=== PATIENT | male | born 1975 | race Caucasian/White ===

== ENCOUNTER 2016-10-31 10:37 | Emergency (ER) | payer OTHER ==
[2016-10-31] MEDS ORDERED: Sodium Chloride 0.9% 1,000 ML IV ONE (11:33)
--- NOTE | 2016-10-31 11:37 | C.PDOC ---
History Of Present Illness 41 y/o male presents to the ED with complaints of blood tinged sputum this morning. Patient states he occasionally spits up blood in the morning over the past year, which he thought was secondary to brushing his teeth. He admits to occasional gum bleeding when brushing. He also reports dry cough and nasal congestion over the past 4 days with upper back pain. Patient additionally reports epigastric burning sensation intermittently for several days, worse with eating. Denies chest pain, fever, chills, night sweats, weight loss, weakness, hematuria, hemtochezia or any other complaints. Denies recent travel. PSHx appendectomy. Time Seen by Provider: 10/31/16 11:23 Chief Complaint (Nursing): Medical Clearance History Per: Patient History/Exam Limitations: no limitations Onset/Duration Of Symptoms: Days Current Symptoms Are (Timing): Still Present Severity: Mild Recent travel outside of the [place]: No Past Medical History Reviewed: Historical Data, Nursing Documentation, Vital Signs Vital Signs: Last Vital Signs Temp 98.1 F 10/31/16 12:35 Pulse 60 10/31/16 12:35 Resp 18 10/31/16 12:35 BP 118/75 10/31/16 12:35 Pulse Ox 98 10/31/16 12:36 - Medical History PMH: No Chronic Diseases Surgical History: Appendectomy Family History: States: Unknown Family Hx - Social History Hx Alcohol Use: No Hx Substance Use: No - Immunization History Hx Tetanus Toxoid Vaccination: No Hx Influenza Vaccination: No Hx Pneumococcal Vaccination: No Review Of Systems Constitutional: Negative for: Fever, Chills, Sweats, Weakness, Weight loss ENT: Positive for: Nose Congestion Cardiovascular: Negative for: Chest Pain Respiratory: Positive for: Cough, Sputum (blood tinged). Negative for: Shortness of Breath, Pleuritic Pain Gastrointestinal: Positive for: Abdominal Pain (burning). Negative for: Vomiting, Diarrhea, Hematochezia Genitourinary: Negative for: Hematuria Musculoskeletal: Positive for: Back Pain Skin: Negative for: Rash Neurological: Negative for: Weakness, Numbness, Headache, Dizziness Physical Exam - Physical Exam Appears: Non-toxic, No Acute Distress Skin: Warm, Dry, No Diaphoretic, No Pale, No Rash Head: Atraumatic, Normacephalic Eye(s): bilateral: Normal Inspection, EOMI Ear(s): Bilateral: Normal Nose: Normal Oral Mucosa: Moist Teeth: Normal Dentition Gingiva: Normal Appearing, No Bleeding Throat: Normal, No Erythema Neck: Normal, Normal ROM, Supple Chest: Symmetrical Cardiovascular: Rhythm Regular, No Murmur Respiratory: Normal Breath Sounds, No Rales, No Rhonchi, No Wheezing Gastrointestinal/Abdominal: Normal Exam, Soft, No Tenderness Back: Normal Inspection, No Vertebral Tenderness, No Paraspinal Tenderness Extremity: Bilateral: Atraumatic, Normal Color And Temperature, Normal ROM Neurological/Psych: Oriented x3, Normal Speech Gait: Steady ED Course And Treatment - Laboratory Results Result Diagrams: 10/31/16 11:46 10/31/16 11:46 Lab Interpretation: No Acute Changes O2 Sat by Pulse Oximetry: 98 (room air) Pulse Ox Interpretation: Normal Medical Decision Making Medical Decision Making: Impression: 41 y.o male with blood tinge sputum Plan: * EKG * XR abdomen/chest * labs, UA * IV fluids * protonix Progress: XRay shows no active cardiopulmonary disease. No evidence of bowel obstruction. Labs reviewed and unremarkable; normal H/H, coags and no electrolyte abnormality Patient remained well in no acute distress. No signs of hemodynamic instability. Discussed results with patient and provide copy of all labwork. Instruct patient the importance of follow up in the clinic in the next few days for further evaluation. Patient verbalized understanding and will follow up . Disposition Counseled Patient/Family Regarding: Diagnosis, Need For Followup - Disposition Referrals: [facility] [Outside] Disposition: HOME/ ROUTINE Disposition Time: 12:33 Condition: STABLE Additional Instructions: Serena laboratorios y la radiografa rubio normales. Por favor, siga en la clnica para bebeto evaluacin ms detallada. 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 - Scribe Statement The provider has reviewed the documentation as recorded by the Scribe Mor Suarez All medical record entries made by the Scribe were at my direction and personally dictated by me. I have reviewed the chart and agree that the record accurately reflects my personal performance of the history, physical exam, medical decision making, and the department course for this patient. I have also personally directed, reviewed, and agree with the discharge instructions and disposition.
[2016-10-31 11:54] LABS: BASO # 0.1 K/uL (0.0-0.2); BASO % 0.8 % (0.0-2.0); EOS # 0.4 K/uL (0.0-0.7); EOS % 6.2 % (0.0-4.0); HEMATOCRIT 37.9 % (35.0-51.0); LYMPH # 2.1 K/uL (1.0-4.3); LYMPH % 30.5 % (20.0-40.0); MEAN CELL VOLUME 83.5 fL (80.0-94.0); MEAN CORPUSCULAR HEMOGLOBIN 28.1 pg (27.0-31.0); MEAN CORPUSCULAR HGB CONC 33.6 g/dL (33.0-37.0); MEAN PLATELET VOLUME 7.9 fL (7.2-11.7); MONO # 0.7 K/uL (0.0-0.8); MONO % 10.5 % (0.0-10.0); WHITE BLOOD COUNT 6.9 K/uL (4.8-10.8)
[2016-10-31 11:58] LABS: CHLORIDE 105 mmol/L (98-107); POTASSIUM 3.8 mmol/L (3.6-5.2); SODIUM 140 mmol/L (132-148)
[2016-10-31 12:00] LABS: AST/SGOT 28 U/L (17-59); BILIRUBIN,TOTAL 0.9 mg/dL (0.2-1.3); CARBON DIOXIDE 24 mmol/L (22-30); GFR AFRICAN-AMERICAN > 60
[2016-10-31 12:01] LABS: ALB/GLOB RATIO 1.2 (1.0-2.1); ALKALINE PHOSPHATASE 68 U/L (38-126); ALT/SGPT 28 U/L (21-72); BLOOD UREA NITROGEN 14 mg/dL (9-20); CALCIUM 8.6 mg/dl (8.6-10.4); GLUCOSE,RANDOM 105 mg/dL (75-110); TOTAL PROTEIN 7.2 g/dL (6.3-8.3)
[2016-10-31 12:05] LABS: RBC URINE < 1 /hpf (0-3); URINE BILIRUBIN NEGATIVE (NEGATIVE); URINE BLOOD NEGATIVE (NEGATIVE); URINE COLOR Yellow (YELLOW); URINE GLUCOSE (UA) NORMAL (Normal); URINE KETONE NEGATIVE (NEGATIVE); URINE LEUKOCYTE ESTERASE NEG Leu/uL (Negative); URINE PROTEIN NEGATIVE (NEGATIVE); URINE UROBILINOGEN NORMAL mg/dL (0.2-1.0); WBC URINE 1 /hpf (0-5)
[2016-10-31] MEDS ORDERED: Sodium Chloride 0.9% 1,000 ML ONE (12:10)
[2016-10-31 12:35] VITALS: BP 118/75; PULSE 60; RESP 18; TEMP 98.1
[2016-10-31 12:36] VITALS: O2SAT 98
--- NOTE | 2016-10-31 15:56 | RAD ---
HISTORY: cough and abd pain COMPARISON: No prior. FINDINGS: BOWEL: Frontal view of the chest and upright view of the abdomen were performed. Chest radiograph reveals no evidence of infiltrate. Heart is normal in size. Aorta is normal in size. No pleural effusion is seen. No CHF is noted. Bony thorax is unremarkable. Normal. No obstruction. No free air on the upright view. No abnormal abdominal calcification. BONES: Normal. OTHER FINDINGS: None. IMPRESSION: No active cardiopulmonary disease. No evidence of bowel obstruction.
== END 2016-10-31 12:51 | disposition home or self-care (01) ==
LOC: C.ER 10:37
DX: R04.2 Hemoptysis (principal)
CPT/HCPCS: 36415; 74022; 80053; 81001; 85025; 85610; 85730; 96361; 96374; 99285; C9113; J7040

== ENCOUNTER 2017-10-21 12:05 | Emergency (ER) | payer OTHER ==
[2017-10-21 12:05] VITALS: BMI 34.9
[2017-10-21 12:10] VITALS: BP 133/88; PULSE 73; RESP 16; TEMP 97.3; O2SAT 99
--- NOTE | 2017-10-21 12:24 | C.PDOC ---
History Of Present Illness 42 year old male presents to the ED c/o right shoulder pain that worsens with movement for the past 2 days. Patient states his job requires him to uses his arms a lot. Patient states he is not able to lift his right arm due to pain. Patient denies any injury, fall, trauma, weakness, numbness. Time Seen by Provider: 10/21/17 12:15 Chief Complaint (Nursing): Upper Extremity Problem/Injury History Per: Patient History/Exam Limitations: no limitations Onset/Duration Of Symptoms: Days (2) Current Symptoms Are (Timing): Still Present Quality: "Pain" Exacerbating Factor(s): Movement Recent travel outside of the [facility]: No Additional History Per: Patient Past Medical History Reviewed: Historical Data, Nursing Documentation, Vital Signs Vital Signs: Last Vital Signs Temp 97.3 F L 10/21/17 12:08 Pulse 73 10/21/17 12:08 Resp 16 10/21/17 13:11 BP 133/88 10/21/17 12:08 Pulse Ox 99 10/21/17 12:55 - Medical History PMH: No Chronic Diseases Surgical History: Appendectomy Family History: States: Unknown Family Hx - Social History Hx Alcohol Use: No Hx Substance Use: No - Immunization History Hx Tetanus Toxoid Vaccination: No Hx Influenza Vaccination: No Hx Pneumococcal Vaccination: No Review Of Systems Constitutional: Negative for: Fever, Chills Cardiovascular: Negative for: Chest Pain Respiratory: Negative for: Shortness of Breath Gastrointestinal: Negative for: Nausea, Vomiting Musculoskeletal: Positive for: Shoulder Pain Skin: Negative for: Rash Neurological: Negative for: Weakness, Numbness Physical Exam - Physical Exam Appears: Non-toxic, No Acute Distress Skin: Normal Color, Warm, Dry Head: Atraumatic, Normacephalic Eye(s): bilateral: Normal Inspection Neck: Normal ROM, Supple Chest: Symmetrical Extremity: No Normal ROM (right shoulder due to pain, unable to actively abduct arm above 40 degrees), Tenderness (right shoulder laterally, No AC joint tenderness. No clavicular tenderness), Capillary Refill (< 2 seconds), No Deformity, No Swelling Pulses: Right Radial: Normal Neurological/Psych: Oriented x3, Normal Speech Gait: Steady ED Course And Treatment O2 Sat by Pulse Oximetry: 99 (ON RA) Pulse Ox Interpretation: Normal Medical Decision Making Medical Decision Making: Impression: right shoulder pain likely tendonitis from overuse. no trauma or injury, thus xray not clinically indicated Plan: * Toradol 60 mg IM Patient reported relief of pain on re-eval. Arm sling applied. Recommend rest ice and ibuprofen Disposition Counseled Patient/Family Regarding: Diagnosis, Need For Followup, Rx Given - Disposition Referrals: [facility] [Outside] [facility] [Outside] [facility] [Outside] Disposition: HOME/ ROUTINE Disposition Time: 12:54 Condition: GOOD Additional Instructions: Apply ice to area for 15-20 minutes at a time 2-3 times per day Take Motrin for pain every 6-8 hours as needed, with food to not upset stomach Follow up with your primary medical doctor or clinic in 2-5 days for further evaluation Return to the emergency department at any time if symptoms persist or worsen. Aplique hielo en el justice liz 15-20 minutos a la vez 2-3 veces por da [place] Motrin para el dolor cada 6-8 horas segn sea necesario, con alimentos para no molestar el estmago Katya un seguimiento con metzger mdico primario o clnica en 2-5 celis para bebeto evaluacin adicional Regrese al departamento de emergencia en cualquier momento si los sntomas persisten o empeoran. 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 - Scribe Statement The provider has reviewed the documentation as recorded by the Scribe Bulmaro Gee All medical record entries made by the Scribe were at my direction and personally dictated by me. I have reviewed the chart and agree that the record accurately reflects my personal performance of the history, physical exam, medical decision making, and the department course for this patient. I have also personally directed, reviewed, and agree with the discharge instructions and disposition.
== END 2017-10-21 13:09 | disposition home or self-care (01) ==
LOC: C.ER 12:05
DX: M77.8 Other enthesopathies, not elsewhere classified (principal)
CPT/HCPCS: 96372; 99284; J1885

== ENCOUNTER 2017-10-22 18:49 | Emergency (ER) | payer OTHER ==
[2017-10-22 18:50] VITALS: BMI 34.9
[2017-10-22 18:55] VITALS: RESP 18
[2017-10-22] MEDS ORDERED: Oxycodone/Acetaminophen 5/325 mg Tab PO STA (19:23)
[2017-10-22] MEDS ORDERED: Oxycodone/Acetaminophen 5/325 mg Tab ONE (19:29)
--- NOTE | 2017-10-22 20:25 | C.PDOC ---
History Of Present Illness 42 year old male presents to the ED for evaluation of right shoulder pain. Patient states his job requires a lot of heavy lifting and use of his arms. Patient was evaluated in this ED for right shoulder pain yesterday. During his visit, patient was given Toradol IM with some relief and was discharged with prescription for Motrin. Patient states he was unable to sleep during the night due to pain and feels like his shoulder pain has worsened. Patient denies direct trauma to the area or extremity numbness/weakness. Time Seen by Provider: 10/22/17 19:13 Chief Complaint (Nursing): Upper Extremity Problem/Injury History Per: Patient History/Exam Limitations: no limitations Onset/Duration Of Symptoms: Days Current Symptoms Are (Timing): Still Present Quality: "Pain" Additional History Per: Patient Past Medical History Reviewed: Historical Data, Nursing Documentation, Vital Signs Vital Signs: Last Vital Signs Temp 98.2 F 10/22/17 20:51 Pulse 81 10/22/17 20:51 Resp 18 10/22/17 20:51 BP 146/78 10/22/17 20:51 Pulse Ox 98 10/23/17 01:04 - Medical History PMH: No Chronic Diseases Surgical History: Appendectomy Family History: States: Unknown Family Hx - Social History Hx Alcohol Use: No Hx Substance Use: No - Immunization History Hx Tetanus Toxoid Vaccination: No Hx Influenza Vaccination: No Hx Pneumococcal Vaccination: No Review Of Systems Musculoskeletal: Positive for: Shoulder Pain (right) Neurological: Negative for: Weakness, Numbness Physical Exam - Physical Exam Appears: Non-toxic, No Acute Distress Skin: Normal Color, Warm, Dry Head: Atraumatic, Normacephalic Eye(s): bilateral: Normal Inspection Oral Mucosa: Moist Neck: Normal ROM, Supple Chest: Symmetrical, No Deformity, No Tenderness Extremity: No Normal ROM (decreased in right shoulder, secondary to pain ), Tenderness (anterolateral aspect of right shoulder ), Capillary Refill (less than 2 seconds ), No Deformity, No Swelling Extremity: Bilateral: Atraumatic, Normal Color And Temperature Pulses: Right Radial: Normal Neurological/Psych: Oriented x3, Normal Speech, Normal Cognition, Normal Motor, Normal Sensation Gait: Steady ED Course And Treatment O2 Sat by Pulse Oximetry: 98 (on RA) Pulse Ox Interpretation: Normal Progress Note: Right shoulder XR ordered. Results show partial subluxation of humeral head. No signs of fracture or dislocation. Percocet PO and Valium PO administered. Patient given arm sling for support. On re-exam, patient is resting comfortably, showing no signs of distress and reports an improvement in his symptoms. Patient is d/c with sling in place, advised to f/u with his PMD within 1-2 days for further evaluation and/or return to the ED if symptoms persist or worsen. Disposition Counseled Patient/Family Regarding: Diagnosis, Need For Followup, Rx Given - Disposition Referrals: [facility] [Outside] [facility] [Outside] Disposition: HOME/ ROUTINE Disposition Time: 20:25 Condition: STABLE Additional Instructions: Please follow up with PMD for ortho referral Or follow up in ortho clinic Take meds as directed Return to ER if worse Prescriptions: Cyclobenzaprine [Cyclobenzaprine HCl] 10 mg PO BID #10 tab Instructions: Frozen Shoulder (DC) Forms: [employer] (Yakut), Work Excuse - Clinical Impression Clinical Impression: Shoulder pain, right - 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 - Scribe Statement The provider has reviewed the documentation as recorded by the Scribe (Miley Cho) All medical record entries made by the Scribe were at my direction and personally dictated by me. I have reviewed the chart and agree that the record accurately reflects my personal performance of the history, physical exam, medical decision making, and the department course for this patient. I have also personally directed, reviewed, and agree with the discharge instructions and disposition.
[2017-10-22 20:54] VITALS: BP 146/78; PULSE 81; TEMP 98.2
[2017-10-22 21:49] VITALS: O2SAT 98
--- NOTE | 2017-10-23 11:44 | RAD ---
PROCEDURE: Radiographs of the Right Shoulder HISTORY: pain, decreased ROM COMPARISON: No prior. FINDINGS: BONES: Normal. No fracture. JOINTS: There appears be inferior subluxation of the right humeral head with respect to the medially. SOFT TISSUES: There is a a somewhat teardrop shaped calcification in the soft tissues adjacent to the greater tuberosity consistent with calcific tendinitis. OTHER FINDINGS: None. IMPRESSION: No evidence of acute displaced fracture nor dislocation however there is inferior subluxation of the humeral head with respect the glenoid.
== END 2017-10-22 20:54 | disposition home or self-care (01) ==
LOC: C.ER 18:49
DX: M25.511 Pain in right shoulder (principal)

== ENCOUNTER 2018-04-09 08:39 | Emergency (ER) | payer OTHER ==
[2018-04-09 08:40] VITALS: BMI 34.9
[2018-04-09 08:52] VITALS: BP 129/82; PULSE 78; RESP 18; TEMP 98.4; O2SAT 96
--- NOTE | 2018-04-09 09:30 | C.PDOC ---
History Of Present Illness 42 year old male presents to the ED for evaluation of bilateral plantar foot pain that is worse in the morning for 3 months. 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 He notes the pain is better with inseds. Also reports he tried running for weight loss but states he strained his legs. Denies fever, numbness, tingling, falls, trauma, and any other associated symptoms. Time Seen by Provider: 04/09/18 09:19 Chief Complaint (Nursing): Lower Extremity Problem/Injury History Per: Patient History/Exam Limitations: no limitations Onset/Duration Of Symptoms: Days (x3 months) Current Symptoms Are (Timing): Still Present Past Medical History Reviewed: Historical Data, Nursing Documentation, Vital Signs Vital Signs: Last Vital Signs Temp 98.4 F 04/09/18 08:46 Pulse 78 04/09/18 08:46 Resp 18 04/09/18 08:46 BP 129/82 04/09/18 08:46 Pulse Ox 96 04/09/18 08:46 Surgical History: Appendectomy Family History: States: Unknown Family Hx - Social History Hx Alcohol Use: No Hx Substance Use: No - Immunization History Hx Tetanus Toxoid Vaccination: No Hx Influenza Vaccination: No Hx Pneumococcal Vaccination: No Review Of Systems Except As Marked, All Systems Reviewed And Found Negative. Constitutional: Positive for: Weight loss (attempted. ). Negative for: Fever Musculoskeletal: Positive for: Foot Pain (bilateral plantar foot pain.) Neurological: Negative for: Weakness, Numbness, Incoordination Physical Exam - Physical Exam Appears: Well, Non-toxic, No Acute Distress, Other Skin: Normal Color, Warm, Dry, Other (feet, bilaterally: increased callous to medial anterior heal. no callous on the plantar MTP. ) Head: Atraumatic, Normacephalic Eye(s): bilateral: Normal Inspection Respiratory: Other (NARD) Extremity: Normal ROM (x4), Tenderness (to the medial plantar heal area, plantar surface.), No Deformity, No Swelling Pulses: Left Dorsalis Pedis: Normal, Right Dorsalis Pedis: Normal Neurological/Psych: Oriented x3, Normal Speech, Normal Cognition, Normal Motor, Normal Sensation, Normal Reflexes ED Course And Treatment O2 Sat by Pulse Oximetry: 96 (RA) Pulse Ox Interpretation: Normal Medical Decision Making Medical Decision Making: overweight, suspect plantar fasciitis x 6 months no acute injuries prior injections by Czech doctors in heel spur areas NSAIDS, rolling frozen ice bottles, weight loss Plan: --Motrin Progress/Update: Callous to medial anterior heal but no callous on the plantar MTP, suggestion of abnormal gait. Patient stable for discharge home. Disposition Doctor Will See Patient In The: Office Counseled Patient/Family Regarding: Studies Performed, Diagnosis - Disposition Referrals: [facility] [Outside] [facility] [Outside] [facility] [Outside] [facility] [Outside] Disposition: HOME/ ROUTINE Disposition Time: 09:30 Condition: GOOD Additional Instructions: ibuprofeno/advil 600 mg 4 veces al taylor mazin necessario [place] de hielo 1/2 hora por hora en los pies botella de agua congelada en la parte plantar baja de peso 20 libras Sigue con [facility] Instructions: Heel Pain (Caused by Plantar Fasciitis) Forms: [employer] (Telugu), Work Excuse Print Language: [place] CITIZEN - Clinical Impression Clinical Impression: Chronic foot pain - Scribe Statement The provider has reviewed the documentation as recorded by the Scribe (Shanell Armijo) Provider Attestation: All medical record entries made by the Scribe were at my direction and personally dictated by me. I have reviewed the chart and agree that the record accurately reflects my personal performance of the history, physical exam, medical decision making, and the department course for this patient. I have also personally directed, reviewed, and agree with the discharge instructions and disposition.
== END 2018-04-09 09:40 | disposition home or self-care (01) ==
LOC: C.ER 08:39
DX: G89.29 Other chronic pain (principal); M79.672 Pain in left foot; M79.671 Pain in right foot